=== PATIENT | female | born 1935 | race Caucasian/White ===

== ENCOUNTER 2022-08-31 04:12 | Emergency (ER) | payer OTHER ==
[~2022-08-31] VITALS: Ht 152.4 cm; Wt 58.5 kg
--- NOTE | 2022-08-31 04:12 | NUR ---
PT BIBA TO RM [address]B. PT PLACE ON MONITOR WITH VSS AND O2 SAT 97%.
--- NOTE | 2022-08-31 04:20 | NUR ---
AT BEDSIDE FOR EVAL.
[2022-08-31 05:05] LABS: HEMATOCRIT 34.5 % (31.2-41.9); MEAN CORPUSCULAR HEMOGLOBIN 31.7 uug (24.7-32.8); MEAN CORPUSCULAR VOLUME 91.3 fL (75.5-95.3); PLATELET COUNT (AUTO) 225 K/uL (179-408)
--- NOTE | 2022-08-31 05:15 | NUR ---
CHEST X RAY DONE AT BEDSIDE.
[2022-08-31 05:17] LABS: CARBON DIOXIDE 28 mmol/L (21-32); CHLORIDE 97 mmol/L (98-107); CREATININE 0.9 mg/dL (0.6-1.3); GLUCOSE 105 mg/dL (74-106); POTASSIUM 3.6 mmol/L (3.5-5.1); UREA NITROGEN, BLOOD 22 mg/dL (7-18)
[2022-08-31 05:26] LABS: ALANINE AMINOTRANSFERASE 46 U/L (14-59); ALKALINE PHOSPHATASE 78 U/L (50-136); ASPARTATE AMINOTRANSFERASE 38 U/L (15-37); BILIRUBIN,DIRECT 0.3 mg/dL (0.0-0.2); TOTAL PROTEIN, SERUM 7.4 g/dL (6.4-8.2)
[2022-08-31] MEDS: SPIRONOLACTONE 25 MG TABLET PO SCH ×3 (05:30→09:00)
[2022-08-31] MEDS ORDERED: FUROSEMIDE 20 MG/2 ML VIAL IV ONE (05:30)
--- NOTE | 2022-08-31 05:40 | NUR ---
MARICEL WAS COTACTED FOR DR ROCKWELL.
[2022-08-31] MEDS ORDERED: FUROSEMIDE 20 MG/2 ML VIAL ONE (05:48)
--- NOTE | 2022-08-31 05:50 | NUR ---
DR ROCKWELL SPEAKING WITH MARICEL QUINTANILLA.
[2022-08-31] MEDS ORDERED: SPIRONOLACTONE 25 MG TABLET ONE (06:05)
--- NOTE | 2022-08-31 06:15 | NUR ---
PT UP OOB AMB TO BR. PT VOIDED.
--- NOTE | 2022-08-31 06:20 | NUR ---
CONNELLY CALLED FOR UPDATED VS.
--- NOTE | 2022-08-31 06:30 | NUR ---
COVID SWAB COLLECTED/ SENT TO LAB.
--- NOTE | 2022-08-31 07:15 | NUR ---
REPORT GIVEN TO ALBERTO RIZVI
--- NOTE | 2022-08-31 07:30 | NUR ---
* DUPLICATE ORDER FOR ALDACTONE.
--- NOTE | 2022-08-31 08:55 | NUR ---
Patient will tranSfer to AN outside hospital: [facility] Physician: Tashi Location: [address]/room 5102-B RN: Amy of [facility] accepted hands off report [facility] ambulance [id number]
--- NOTE | 2022-08-31 10:16 | NUR ---
Hands off report given to learning services coordinator Ollie of [facility] unit 342.
== END 2022-08-31 10:39 | disposition short-term general hospital (02) ==
LOC: ER 04:16
DX: J81.1 Chronic pulmonary edema (principal); I34.0 Nonrheumatic mitral (valve) insufficiency; I50.9 Heart failure, unspecified; I25.10 Atherosclerotic heart disease of native coronary artery without angina pectoris; Z20.822 Contact with and (suspected) exposure to COVID-19
CPT/HCPCS: 99285; 96374; 71045; 87426; 80076; 80048; 83735; 85025; 84484 ×2; 36415; 93005; 83605; J1940; A4663